=== PATIENT | female | born 1995 | race Two or more races ===

== ENCOUNTER 2020-03-02 14:11 | Emergency (ER) | payer OTHER ==
[2020-03-02 14:47] LABS: BASOPHILS % (AUTO) 0.4 %; EOSINOPHILS # (AUTO) 0.5 10^3/uL (0.0-0.7); EOSINOPHILS % (AUTO) 4.8 %; HGB - HEMOGLOBIN 14.4 g/dL (12.0-16.0); LYMPHOCYTES # (AUTO) 2.2 10^3/uL (1.5-3.5); LYMPHOCYTES % (AUTO) 20.3 %; MEAN CORPUSCULAR HEMOGLOBIN 32.1 pg (27.0-31.0); MEAN CORPUSCULAR VOLUME 94.2 fL (81.0-99.0); MEAN PLATELET VOLUME 9.7 fL (7.9-10.8); MONOCYTES # (AUTO) 0.6 10^3/uL (0.0-1.0); MONOCYTES % (AUTO) 5.6 %; NEUTROPHILS # (AUTO) 7.5 10^3/uL (1.5-6.6); NEUTROPHILS % (AUTO) 68.4 %; PLT - PLATELET COUNT 351 10^3/uL (130-450); RED BLOOD COUNT 4.49 10^6/uL (4.20-5.40); RED CELL DISTRIBUTION WIDTH 13.1 % (12.0-15.0); WHITE BLOOD COUNT 10.9 x10^3/uL (4.8-10.8)
--- NOTE | 2020-03-02 14:53 | ED Physician Documentation ---
History of Present Illness - Stated complaint Stated Complaint: FEMALE - Chief complaint Chief Complaint: Abd Pain - History obtained from History obtained from: Patient - History of Present Illness Timing: Prior to arrival, How many hours ago (6) - Additonal information Additional information: 25-year-old female presents to the emergency department with chief complaint of first trimester vaginal bleeding. Reports that she woke up this a.m. noticed some light vaginal spotting. After she took her shower however she began having some abdominal cramping and passing clots.She denies any focal abdominal tenderness Last menstrual period January 20, 2020. Her first was delivered action secondary to low heart rate. [place] She has not yet had an ultrasound of this Review of Systems Constitutional: denies: Fever Cardiac: denies: Chest pain / pressure, Palpitations Respiratory: denies: Dyspnea GI: reports: Nausea. denies: Abdominal Pain, Abdominal Swelling, Vomiting : reports: LMP (01/20/2020), Vaginal bleeding. denies: Dysuria, Frequency, Hesitancy Musculoskeletal: denies: Neck pain, Back pain Neurologic: denies: Generalized weakness, Syncope, Seizure, Confused PD PAST MEDICAL HISTORY - Allergies Allergies/Adverse Reactions: Allergies Allergy/AdvReac Type Severity Reaction Status Date / Time No Known Drug Allergies Allergy Verified 03/02/20 14:25 PD ED PE NORMAL - General General: Alert and oriented X 3, No acute distress, Well developed/nourished - Neck Neck: Supple, no meningeal sign, No adenopathy - Cardiac Cardiac: RRR, No murmur - Respiratory Respiratory: No respiratory distress - Abdomen Abdomen: Normal bowel sounds, Soft, Non tender - Female Female : Other (Scant amount of blood in vaginal vault. Cervical Os is closed. No bleeding. No adnexal or CMT) - Back Back: No CVA TTP - Extremities Extremities: No deformity - Neuro Neuro: Alert and oriented X 3, contract administration coordinator 2-12 intact Eye Opening: Spontaneous Motor: Obeys Commands Verbal: Oriented GCS Score: 15 Results - Vitals Vitals: Vital Signs - 24 hr 03/02/20 03/02/20 14:25 16:43 Temperature 36.8 C 36.8 C Heart Rate 100 96 Respiratory 16 20 Rate Blood Pressure 129/65 127/75 O2 Saturation 98 96 Oxygen O2 Source Room air - Labs Labs: Laboratory Tests 03/02/20 03/02/20 03/02/20 14:40 14:40 14:42 WBC 10.9 H RBC 4.49 Hgb 14.4 Hct 42.3 MCV 94.2 MCH 32.1 H MCHC 34.0 RDW 13.1 Plt Count 351 MPV 9.7 Neut # (Auto) 7.5 H Lymph # (Auto) 2.2 Stewart # (Auto) 0.6 Eos # (Auto) 0.5 Baso # (Auto) 0.0 Absolute Nucleated RBC 0.00 Nucleated RBC % 0.0 Sodium Potassium Chloride Carbon Dioxide Anion Gap BUN Creatinine Estimated GFR (MDRD) Glucose Calcium Total Bilirubin AST ALT Alkaline Phosphatase Total Protein Albumin Globulin Albumin/Globulin Ratio Lipase HCG, Quant 14874.00 Urine Color YELLOW Urine Clarity CLEAR Urine pH 6.5 Ur Specific [place] 1.010 Urine Protein NEGATIVE Urine Glucose (UA) NEGATIVE Urine Ketones NEGATIVE Urine Occult Blood SMALL H Urine Nitrite NEGATIVE Urine Bilirubin NEGATIVE Urine Urobilinogen 0.2 (NORMAL) Ur Leukocyte Esterase NEGATIVE Urine RBC 6-10 H Urine WBC 0-3 Ur Epithelial Cells RARE Transitional Ur Squamous Epith Cells RARE Squamous Urine Bacteria None Seen Ur Microscopic Review INDICATED Urine Culture Comments NOT INDICATED Blood Type 03/02/20 03/02/20 14:42 14:42 WBC RBC Hgb Hct MCV MCH MCHC RDW Plt Count MPV Neut # (Auto) Lymph # (Auto) Stewart # (Auto) Eos # (Auto) Baso # (Auto) Absolute Nucleated RBC Nucleated RBC % Sodium 134 L Potassium 3.3 L Chloride 102 Carbon Dioxide 23 Anion Gap 9.0 BUN 9 Creatinine 0.6 Estimated GFR (MDRD) 124 Glucose 132 H Calcium 9.0 Total Bilirubin 0.2 AST 21 ALT 32 Alkaline Phosphatase 109 Total Protein 7.6 Albumin 4.1 Globulin 3.5 Albumin/Globulin Ratio 1.2 Lipase 34 HCG, Quant Urine Color Urine Clarity Urine pH Ur Specific [place] Urine Protein Urine Glucose (UA) Urine Ketones Urine Occult Blood Urine Nitrite Urine Bilirubin Urine Urobilinogen Ur Leukocyte Esterase Urine RBC Urine WBC Ur Epithelial Cells Ur Squamous Epith Cells Urine Bacteria Ur Microscopic Review Urine Culture Comments Blood Type O POSITIVE - Rads (name of study) Pelvic US Radiology: Final report received (By core urinate uterus. The implantation is within the lower portion of the right cornua. There is a small subchorionic hemorrhage within the left lower cornual region and an early first trimester variable intrauterine gestation is seen 6 weeks 1 day.) PD MEDICAL DECISION MAKING - ED course Complexity details: reviewed results, considered differential, d/w patient ED course: 25-year-old female presents to the emergency department with vaginal bleeding within the first trimester . This is her second . 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 - Patient is Rh+. An ultrasound shows a positive IUP. However she does have a bicornate uterus. There is a subchorionic hemorrhage within the lower coronary region, likely the cause of the bleeding. - No signs of urinary tract infection - Physical exam and pelvic ultrasound not consistent with ectopic - Has a very healthy hCG today. imaging and lab findsings findings were discussed with the patient. [place] for repeat hCG and monitoring. Return precautions were discussed for concerns of severe bleeding, fevers or syncope. Departure - Departure Disposition: 01 Home, Self Care Clinical Impression: Threatened miscarriage in early , Bicornate uterus Subchorionic hemorrhage in first trimester Qualifiers: Fetus number: single or unspecified fetus Qualified Code(s): O41.8X10 - Other specified disorders of amniotic fluid and membranes, first trimester, not applicable or unspecified; O46.8X1 - Other antepartum hemorrhage, first trimester Condition: Stable Instructions: ED Miscarriage Poss Comments: Nilsa the ultrasound today shows that you have an approximately 6-week 1 day old within your uterus. You do have a small subchorionic hemorrhage within the left upper region of your bicorunate uterus. Your hCG level today was 12,000. You should see your base physician within 48 hours. Your hormone level should be repeated. If you develop suddenly severe lower pelvic pain have uncontrolled vaginal bleeding feel faint or weak return to the emergency department
[2020-03-02 14:58] LABS: BILIRUBIN,URINE NEGATIVE (NEGATIVE); GLUCOSE, URINE (UA) NEGATIVE (NEGATIVE); KETONES,URINE (UA) NEGATIVE (NEGATIVE); LEUKOCYTE ESTERASE, URINE NEGATIVE (NEGATIVE); NITRITE,URINE NEGATIVE (NEGATIVE); OCCULT BLOOD,URINE SMALL (NEGATIVE); PH,URINE 6.5 PH (5.0-7.5); PROTEIN,URINE NEGATIVE (NEGATIVE); UROBILINOGEN,URINE 0.2 (NORMAL) E.U./dL (NORMAL)
[2020-03-02 15:02] LABS: ALBUMIN 4.1 g/dL (3.2-5.5); ALBUMIN/GLOBULIN RATIO 1.2 (1.0-2.2); BILIRUBIN,TOTAL 0.2 mg/dL (0.2-1.0); CREATININE 0.6 mg/dL (0.4-1.0); TOTAL PROTEIN 7.6 g/dL (6.7-8.2)
[2020-03-02 15:04] LABS: CLARITY,URINE CLEAR (CLEAR)
[2020-03-02 15:10] LABS: EPITHELIAL CELLS,UR RARE Transitional /HPF (<= Few); SQUAMOUS EPITHELIAL CELL,UR RARE Squamous (<= Few)
[2020-03-02 15:11] LABS: BACTERIA,URINE None Seen /HPF (None Seen)
--- NOTE | 2020-03-02 16:59 | Ultrasound Report ---
PROCEDURE: OB First Trimester INDICATIONS: first trimester bleeding OUTSIDE/PRIOR DATING DATA: Last menstrual period (LMP): 01/20/2020. LMP-based estimated date of delivery (NATIVIDAD): 10/26/2020. First dating scan (date and location): 03/02/2020, this study. Estimated date of delivery ([place]) from first dating scan: 10/25/2020. TECHNIQUE: Real-time scanning was performed of the fetus and maternal pelvic organs, with image documentation. COMPARISON: None FINDINGS: There is a single living intrauterine gestation with heart rate 86 bpm, with a crown-rump length of a gestation within the endometrial canal measuring 4 mm which correlates with an early firs t trimester gestation measuring 6 weeks 1 day of gestational age, +/- 5 days. Embryo: Viable gestation as noted. The low heart rate is expected in the very early phases of embryo wolfgang development. Measurement variability in dating: +/- 4 weeks by LMP, +/- 7 days by mean sac diameter (use before 6 weeks gestation if crown-rump length not able to be measured), +/- 5 days by crown-rump length (6-12 weeks gestation). Maternal organs: Ovaries normal considering gestational status, corpus luteum cyst on the right. . T here is bicornuate morphology of the uterus. The is located on the right cornua rather than superiorly. Note is made of several small foci of subchorionic hemorrhage, best seen at the left cor nual region.. Limited images through the kidneys demonstrate no hydronephrosis. IMPRESSION: Bicornuate uterus, the implantation is within the lower portion of the right cornua. There is a small subchorionic hemorrhage within the left lower cornu region, and a early first trimester viable intra uterine gestation is currently seen having a current estimated gestational age of 6 weeks 1 day, +/- 5 days. The delivery date is projected to be centered on 10/25/2020. Reviewed by: Ronan Strauss MD on 03/02/2020 4:57 PM PDT Approved by: Ronan Strauss MD on 03/02/2020 4:57 PM PDT Station ID: [id number]
--- NOTE | 2020-03-02 17:18 | Ultrasound Report ---
PROCEDURE: OB Transvaginal INDICATIONS: first trimester bleeding TECHNIQUE: Transvaginal scanning was performed COMPARISON: Transabdominal scanning also performed same day emergently. FINDINGS: Please refer to the report from the transabdominal scan for this dictation. Both transabdominal and t ransvaginal scanning were performed during that study. IMPRESSION: Please refer to the report same day previously generated for "transabdominal" scanning which also inc luded transvaginal scanning. Reviewed by: Ronan Strauss MD on 03/02/2020 5:17 PM PDT Approved by: Ronan Strauss MD on 03/02/2020 5:17 PM PDT Station ID: [id number]
[2020-03-02 18:02] VITALS: BP 117/77
== END 2020-03-02 18:06 | disposition home or self-care (01) ==
LOC: ED 14:11
DX: O20.0 Threatened abortion (principal); O34.01 Maternal care for unspecified congenital malformation of uterus, first trimester; Q51.3 Bicornate uterus
CPT/HCPCS: 36415; 76801; 76817; 80053; 81001; 81003; 83690; 84702; 85025; 86900; 86901; 87086; 99284

== ENCOUNTER 2020-05-11 10:39 | Outpatient (CLI) | payer OTHER ==
--- NOTE | 2020-05-11 13:20 | Ultrasound Report ---
PROCEDURE: OB Transvaginal INDICATIONS: ABN UTERINE VAG BLEEDING - 16WKS OUTSIDE/PRIOR DATING DATA: Last menstrual period (LMP): 01/20/2020. LMP-based estimated date of delivery ([place]): 10/26/2020. First dating scan (date and location): 03/02/2020 at [facility]. Estimated date of delivery ([facility]) from first dating scan: 10/25/2020. TECHNIQUE: Real-time scanning was performed of the fetus, with image documentation and biometric measurements. Endovaginal scanning: Performed. Transvaginal images are associated with transabdominal OB ultrasoun d study performed at the same time (accession number [id number]). COMPARISON: Ultrasound dated 11/17/2019 FINDINGS: General: A single living intrauterine gestation is present. Presentation: Variable Placenta: Placental position is posterior. Amniotic fluid index: 9.5 cm, 15th percentile for gestational age. heart rate: 143 beats per minute. Maternal cervical canal: 4.4 cm long; normal length is 2.5 cm or more. biometrics: Biparietal diameter: 3.5 cm, 16 weeks 5 days Head circumference: 12.6 cm, 16 weeks 2 days Abdominal circumference: 10.4 cm, 16 weeks 3 days Femur length: 2.0 cm, 16 weeks 0 days Estimated gestational age from initial scan: 16 weeks 1 day. Composite gestational age from present scan: 16 weeks 3 days Estimated weight and percentile: 148 g, 45th percentile Measurement variability for biometric dating: +/- 10 days from 12-20 weeks gestation, +/- 2 weeks fro m 20-30 weeks gestation, +/- 3 weeks for 30 weeks gestation or later. Bicornuate uterus is present. The ovaries are not well visualized. The inferior border of the placent a is approximately 1.3 cm from the internal cervical os on transvaginal images. Some vascularity is s een in the region of the internal cervical os without definite vasa previa. However, continued attent ion on follow-up exams is recommended. IMPRESSION: 1. Single live intrauterine with heart rate of 143 BPM. 2. The placenta is low-lying, with the lower margin approximately 1.3 cm from the internal cervical os. Vessels are seen in the region of the internal cervical os without a definite vasa previa. Contin ued attention on follow-up exams is recommended. 3. Recommend second trimester anatomy screening ultrasound at 18-20 weeks. 4. Bicornuate uterus. Reviewed by: Luisito Bates MD on 05/11/2020 1:18 PM PDT Approved by: Luisito Bates MD on 05/11/2020 1:18 PM PDT Station ID: [id number]
--- NOTE | 2020-05-11 13:20 | Ultrasound Report ---
PROCEDURE: OB 14+ Weeks INDICATIONS: ABN UTERINE VAG BLEEDING OUTSIDE/PRIOR DATING DATA: Last menstrual period (LMP): 01/20/2020. LMP-based estimated date of delivery (NATIVIDAD): 10/26/2020. First dating scan (date and location): 03/02/2020 at [facility]. Estimated date of delivery ([place]) from first dating scan: 10/25/2020. TECHNIQUE: Real-time scanning was performed of the fetus, with image documentation and biometric measurements. Endovaginal scanning: Performed COMPARISON: Ultrasound dated 11/17/2019 FINDINGS: General: A single living intrauterine gestation is present. Presentation: Variable Placenta: Placental position is posterior. Amniotic fluid index: 9.5 cm, 15th percentile for gestational age. heart rate: 143 beats per minute. Maternal cervical canal: 4.4 cm long; normal length is 2.5 cm or more. biometrics: Biparietal diameter: 3.5 cm, 16 weeks 5 days Head circumference: 12.6 cm, 16 weeks 2 days Abdominal circumference: 10.4 cm, 16 weeks 3 days Femur length: 2.0 cm, 16 weeks 0 days Estimated gestational age from initial scan: 16 weeks 1 day. Composite gestational age from present scan: 16 weeks 3 days Estimated weight and percentile: 148 g, 45th percentile Measurement variability for biometric dating: +/- 10 days from 12-20 weeks gestation, +/- 2 weeks fro m 20-30 weeks gestation, +/- 3 weeks for 30 weeks gestation or later. Bicornuate uterus is present. The ovaries are not well visualized. The inferior border of the placent a is approximately 1.3 cm from the internal cervical os on transvaginal images. Some vascularity is s een in the region of the internal cervical os without definite vasa previa. However, continued attent ion on follow-up exams is recommended. IMPRESSION: 1. Single live intrauterine with heart rate of 143 BPM. 2. The placenta is low-lying, with the lower margin approximately 1.3 cm from the internal cervical os. Vessels are seen in the region of the internal cervical os without a definite vasa previa. Contin ued attention on follow-up exams is recommended. 3. Recommend second trimester anatomy screening ultrasound at 18-20 weeks. 4. Bicornuate uterus. Reviewed by: Luisito Bates MD on 05/11/2020 1:18 PM PDT Approved by: Luisito Bates MD on 05/11/2020 1:18 PM PDT Station ID: [id number]
== END 2020-05-11 10:40 | disposition home or self-care (01) ==
LOC: DI 10:39
PROVIDERS: ATTEND Obstetrics & Gynecology
DX: O44.42 Low lying placenta NOS or without hemorrhage, second trimester (principal); O34.02 Maternal care for unspecified congenital malformation of uterus, second trimester; Q51.3 Bicornate uterus; Z3A.16 16 weeks gestation of pregnancy
CPT/HCPCS: 76805; 76817

== ENCOUNTER 2020-05-26 08:00 | Outpatient (CLI) | payer OTHER ==
[2020-05-26 18:46] LABS: THYROID STIMULATING HORMONE 0.79 uIU/mL (0.34-5.60)
[2020-05-26 18:48] LABS: FREE T4 (FREE THYROXINE) 0.63 ng/dL (0.58-1.64)
[2020-05-27 09:51] LABS: HEPATITIS B SURFACE ANTIGEN NON-REACTIVE (NON-REACTIVE)
[2020-05-27 10:23] LABS: HEPATITIS C ANTIBODY NON-REACTIVE (NON-REACTIVE)
== END 2020-05-26 23:59 | disposition home or self-care (01) ==
LOC: LAB.WCP 08:00
PROVIDERS: ATTEND Obstetrics & Gynecology
DX: Z34.90 Encounter for supervision of normal pregnancy, unspecified, unspecified trimester (principal); Z83.49 Family history of other endocrine, nutritional and metabolic diseases
CPT/HCPCS: 36415; 81511; 81599; 84439; 84443; 86803; 87340

== ENCOUNTER 2020-06-10 07:19 | Outpatient (CLI) | payer OTHER ==
--- NOTE | 2020-06-10 11:51 | Ultrasound Report ---
PROCEDURE: OB Detailed Eval INDICATIONS: SUPERVISION OF NORMAL OUTSIDE/PRIOR DATING DATA: Last menstrual period (LMP): 01/20/2020. LMP-based estimated date of delivery (NATIVIDAD): 10/26/2020. First dating scan (date and location): 03/02/2020. Estimated date of delivery (NAT[place]) from first dating scan: 10/25/2020. TECHNIQUE: Real-time scanning was performed of the fetus, with image documentation and biometric measurements. Endovaginal scanning: To assess placental position COMPARISON: 03/02/2020, 05/11/2020 FINDINGS: General: A single living intrauterine gestation is present. Presentation: Breech Placenta: Placental position is posterior. The edge of the placenta is 3.7 cm from the internal cerv ical os measured on transvaginal imaging. There are no vessels covering the internal cervical os. Vas cular flow is documented along the posterior aspect of the cervix the Doppler imaging was not provide d to determine if this was maternal or in origin. The placental umbilical cord insertion is nor mal. Amniotic fluid index: 14.8 cm, normal for gestational age. heart rate: 143 beats per minute. Maternal cervical canal: 4.9 cm long; normal length is 2.5 cm or more. The cervix is closed on hidalgo svaginal imaging. biometrics: Biparietal diameter: 4.7 cm, 20 weeks, 0 days Head circumference: 17.9 cm, 20 weeks, 2 days Abdominal circumference: 15.6 cm, 20 weeks, 5 days Femur length: 3.2 cm, 20 weeks, 0 days Estimated gestational age from initial scan: 20 weeks, 3 days. Composite gestational age from present scan: 20 weeks, 2 days Estimated weight and percentile: 351 g, 43rd percentile Measurement variability in biometric dating: +/- 10 days from 12-20 weeks gestation, +/- 2 weeks from 20-30 weeks gestation, +/- 3 weeks at 30 weeks gestation or later. Anatomic survey: Neuro: Ventricles are normal at less than 10 mm. Cisterna magna is normal at 3-11 mm. Cerebellum i s normal in size and morphology. Nuchal skin fold: Normal at less than 6 mm between 14 and 20 weeks gestational age. Face: Nose and lips, facial profile are normal. Spine: No evidence for spina bifida. Heart: 4-chambered heart is present, with normal ventricular outflow tracts. Diaphragm: Diaphragm is intact. Stomach: Left-sided stomach is present. Kidneys: No hydronephrosis. Normal is less than 5 mm in 2nd trimester, less than 7 mm in 3rd trimester. Cord: 3 vessel cord has orthotopic insertion. Bladder: Normal in size. Extremities: All 4 extremities are visualized. IMPRESSION: 1. Single live intrauterine with appropriate growth since the prior study. 2. Normal anatomy. 3. Posterior placenta without placenta previa. 4. Vasculature of indeterminant origin along the posterior aspect of the cervix. Vasa previa is not e ntirely excluded and follow-up with transvaginal imaging is recommended with documentation of vascula r flow with pulse Doppler. Reviewed by: Annie Marc MD on 06/10/2020 11:49 AM PST Approved by: Annie Marc MD on 06/10/2020 11:49 AM PST Station ID: [id number]
== END 2020-06-10 07:20 | disposition home or self-care (01) ==
LOC: DI 07:19
PROVIDERS: ATTEND Obstetrics & Gynecology
DX: Z34.90 Encounter for supervision of normal pregnancy, unspecified, unspecified trimester (principal)
CPT/HCPCS: 76811; 76817

== ENCOUNTER 2020-08-10 08:00 | Outpatient (CLI) | payer OTHER ==
[2020-08-10 18:53] LABS: HGB - HEMOGLOBIN 11.5 g/dL (12.0-16.0); MEAN CORPUSCULAR HEMOGLOBIN 30.2 pg (27.0-31.0); MEAN CORPUSCULAR HGB CONC 31.9 g/dL (32.0-36.0); MEAN CORPUSCULAR VOLUME 94.5 fL (81.0-99.0); MEAN PLATELET VOLUME 10.8 fL (7.9-10.8); RED BLOOD COUNT 3.81 10^6/uL (4.20-5.40); RED CELL DISTRIBUTION WIDTH 13.9 % (12.0-15.0); WHITE BLOOD COUNT 11.6 x10^3/uL (4.8-10.8)
== END 2020-08-10 23:59 | disposition home or self-care (01) ==
LOC: LAB.WCP 08:00
PROVIDERS: ATTEND Obstetrics & Gynecology
DX: Z34.90 Encounter for supervision of normal pregnancy, unspecified, unspecified trimester (principal)
CPT/HCPCS: 36415; 82950; 85027

== ENCOUNTER 2020-08-17 10:42 | Outpatient (CLI) | payer OTHER | END 2020-08-17 10:43 | disposition home or self-care (01) | LOC: LAB 10:42 | PROVIDERS: ATTEND Obstetrics & Gynecology | DX: O99.810 Abnormal glucose complicating pregnancy (principal) | CPT/HCPCS: 36415; 82951; 82952 ==

== ENCOUNTER 2020-09-14 08:00 | Outpatient (CLI) | payer OTHER ==
[2020-09-14 20:50] LABS: CANDIDA GROUP DNA POSITIVE (NEGATIVE); CANDIDA KRUSEI DNA NEGATIVE (NEGATIVE); TRICHOMONAS VAGINALIS DNA NEGATIVE (NEGATIVE)
[2020-09-14 22:43] LABS: TRICHOMONAS VAGINALIS DNA NEGATIVE (NEGATIVE)
== END 2020-09-14 23:59 | disposition home or self-care (01) ==
LOC: LAB.R 08:00
PROVIDERS: ATTEND Obstetrics & Gynecology
DX: N89.8 Other specified noninflammatory disorders of vagina (principal); Z11.3 Encounter for screening for infections with a predominantly sexual mode of transmission
CPT/HCPCS: 87491; 87591; 87661; 87801

== ENCOUNTER 2020-09-24 15:32 | Observation (INO) | payer OTHER ==
[2020-09-24] MEDS ORDERED: TERBUTALINE 1 MG/ML VIAL SUBQ ONE ×2 (16:11→19:02)
[2020-09-24] MEDS ORDERED: LACTATED RINGERS 1,000 ML IV ONE ×2 (16:14→19:26)
[2020-09-24 16:42] LABS: MUDS CUTOFF CONCENTRATIONS CUTOFF CONC BELOW:
[2020-09-24 16:46] LABS: BILIRUBIN,URINE NEGATIVE (NEGATIVE); GLUCOSE, URINE (UA) NEGATIVE (NEGATIVE); KETONES,URINE (UA) 15 mg/dL (NEGATIVE); LEUKOCYTE ESTERASE, URINE NEGATIVE (NEGATIVE); NITRITE,URINE NEGATIVE (NEGATIVE); OCCULT BLOOD,URINE NEGATIVE (NEGATIVE); PH,URINE 6.5 PH (5.0-7.5); PROTEIN,URINE NEGATIVE (NEGATIVE); UROBILINOGEN,URINE 0.2 (NORMAL) E.U./dL (NORMAL)
[2020-09-24 16:47] LABS: CLARITY,URINE CLEAR (CLEAR)
[2020-09-24 16:57] LABS: AMPHETAMINE SCREEN,URINE NEGATIVE (NEGATIVE); BARBITURATE SCREEN,UR NEGATIVE (NEGATIVE); BENZODIAZEPINES SCREEN, URINE NEGATIVE (NEGATIVE); COCAINE SCREEN URINE NEGATIVE (NEGATIVE); METHADONE SCREEN, URINE NEGATIVE (NEGATIVE); METHAMPHETAMINES SCREEN, URINE NEGATIVE (NEGATIVE); OPIATE SCREEN, URINE NEGATIVE (NEGATIVE); OXYCODONE SCREEN, URINE NEGATIVE (NEGATIVE); PROPOXYPHENE SCREEN, URINE NEGATIVE (NEGATIVE); THC CANNABINOID SCREEN, URINE NEGATIVE (NEGATIVE); TRICYCLIC ANTIDEPRESSANT,URINE NEGATIVE (NEGATIVE)
[2020-09-24 17:21] LABS: RBC,URINE 0-5 /HPF (0-5); WBC,URINE 0-3 /HPF (0-5)
[2020-09-24 17:22] LABS: BACTERIA,URINE Rare /HPF (None Seen); MUCUS,URINE Few Strands; SQUAMOUS EPITHELIAL CELL,UR RARE Squamous (<= Few)
[2020-09-24 17:41] LABS: BASOPHILS % (AUTO) 0.3 %; EOSINOPHILS # (AUTO) 0.3 10^3/uL (0.0-0.7); EOSINOPHILS % (AUTO) 2.3 %; HGB - HEMOGLOBIN 11.9 g/dL (12.0-16.0); LYMPHOCYTES # (AUTO) 2.1 10^3/uL (1.5-3.5); LYMPHOCYTES % (AUTO) 16.6 %; MEAN CORPUSCULAR HEMOGLOBIN 29.2 pg (27.0-31.0); MEAN CORPUSCULAR HGB CONC 32.2 g/dL (32.0-36.0); MEAN CORPUSCULAR VOLUME 90.7 fL (81.0-99.0); MEAN PLATELET VOLUME 11.1 fL (7.9-10.8); MONOCYTES # (AUTO) 1.2 10^3/uL (0.0-1.0); NEUTROPHILS % (AUTO) 70.5 %; PLT - PLATELET COUNT 307 10^3/uL (130-450); RED BLOOD COUNT 4.08 10^6/uL (4.20-5.40); RED CELL DISTRIBUTION WIDTH 15.2 % (12.0-15.0); WHITE BLOOD COUNT 12.7 x10^3/uL (4.8-10.8)
[2020-09-24 17:54] LABS: ALBUMIN/GLOBULIN RATIO 0.7 (1.0-2.2); BILIRUBIN,TOTAL 0.4 mg/dL (0.2-1.0); CALCIUM 9.3 mg/dL (8.5-10.3); CREATININE 0.4 mg/dL (0.4-1.0); POTASSIUM 3.7 mmol/L (3.5-5.0); TOTAL PROTEIN 7.2 g/dL (6.7-8.2)
[2020-09-24] MEDS: NIFEdipine 10 MG CAPSULE PO PRN ×3 (19:25→20:27)
--- NOTE | 2020-09-24 19:27 | HISTORY & PHYSICAL EXAMINATION ---
Admit History - Visit Reason Visit Reason: Contractions (Patient states that 8 o'clock this morning she developed contractions is becoming progressively worse with time. She presented at 1500 today with contractions. She denies any spontaneous rupture membranes or bleeding. She notes good activity.) - : 2 Parity: 1 Premature: 0 Ectopic: 0 : 0 Care: positive: [facility] Risk/History: positive: Previous Complications This : positive: None Smoking Status: Never smoker - Mother's Labs Mother's Blood Type: positive: O Mother's RH: positive: Positive Rubella Status: positive: Immune - Other Maternal History Other Maternal History: 11 weeks EGA. She had regular visits.Patient started her OB care atHer last exam was on 14 September time her cervix wasHer care was unremarkable. Closed 0% effaced and very posterior presenting part was high. Physical examination HEENT:Pupils equal round extraocular muscles intactThyroid not enlarged Heart: Regular rate and rhythm without murmurs . Lungs: Clear without rales or wheezes Abdomen: Gravid nontender. Patient is having contractions about every 6 to 7 minutes.Pelvic examination Presenting part is high and not applied cervix is fingertip but long it is mid to posterior cervix is soft. DTRs are negative. Impression: 25 yo 35+3 weeks Prior C/S Prodromal labor. Plan: try Procardia 10 mg Q 15 min times 4. Meds/Allgy - Allergies Allergies/Adverse Reactions: Allergies Allergy/AdvReac Type Severity Reaction Status Date / Time No Known Drug Allergies Allergy Verified 03/02/20 14:25 Physical - Abdominal Exam Vital Signs: Temp Pulse Resp BP Pulse Ox 36.7 C 115 H 20 127/77 97 09/24/20 15:37 09/24/20 15:37 09/24/20 15:37 09/24/20 15:37 09/24/20 15:37
[2020-09-24] MEDS ORDERED: NIFEdipine 10 MG CAPSULE PO PRN (19:38)
[2020-09-24] MEDS ORDERED: NIFEdipine ER 30 MG TABLET PO ONE ×2 (20:52→22:00)
[2020-09-25] MEDS ORDERED: ACETAMINOPHEN 500 MG TABLET PO PRN (01:19)
[2020-09-25 08:28] VITALS: BP 104/57
--- NOTE | 2020-09-25 08:49 | PROVIDER PROGRESS NOTE ---
- HPI Chief Complaint: Labor Current : Current EDU 10/26/20 Gestation 35 Weeks and 3 Days 2 Para 1 Vital Signs Temperature 36.7 C 09/24/20 15:37 Heart Rate 118 H 09/24/20 15:37 Respiratory Rate 20 09/24/20 15:37 Blood Pressure 127/77 09/24/20 15:37 O2 Saturation 97 09/24/20 15:37 Temperature 36.7 C 09/25/20 08:25 Heart Rate 105 H 09/25/20 08:25 Respiratory Rate 20 09/25/20 08:25 Blood Pressure 104/57 L 09/25/20 08:25 O2 Saturation 98 09/25/20 08:25 - Procedures OB Procedure Performed: NST Diagnosis/Indication for NST: Other ( labor) NST Procedure: reactive Procedure Details: Pt 's contractions have markedly diminished. She is not now feeling them. Pt is taking Procardia XR 60 mg. last dose was 22:00. Send home with precautions. Discharge medications: Prcardia XR 30 mg q12 PRN #7 Keep Sunday Appt Report contractions
== END 2020-09-25 08:45 | disposition home or self-care (01) ==
LOC: WFO 15:32 → FBP 15:33 → WFO 15:33 → FBP 21:24 → WFO 09-25 01:49
PROVIDERS: ADMIT Obstetrics & Gynecology; ATTEND Obstetrics & Gynecology
DX: O60.03 Preterm labor without delivery, third trimester (principal); Z3A.35 35 weeks gestation of pregnancy
CPT/HCPCS: 59025; 80053; 80306; 81001; 85025; 86850; 86900; 86901; 87797; 99214; A9270; G0378; J7120; 82731; 87086; 87491; 87591; 87661

== ENCOUNTER 2020-10-02 18:50 | Inpatient (IN) | payer OTHER ==
[2020-10-02] MEDS ORDERED: NIFEdipine 10 MG CAPSULE PO PRN (19:25)
[2020-10-02] MEDS ORDERED: METHYLERGONOVINE 0.2 MG/ML VIAL IM PRN (19:33)
[2020-10-02] MEDS ORDERED: OXYTOCIN/SODIUM CHLORIDE 500 ML IV PRN (19:33)
[2020-10-02] MEDS ORDERED: miSOPROStoL 200 MCG TABLET BC PRN (19:33)
[2020-10-02] MEDS ORDERED: TRANEXAMIC ACID IN NACL 1,000 MG/100 ML BAG IV PRN (19:33)
[2020-10-02] MEDS ORDERED: CARBOPROST TROMETHAMINE 250 MCG/ML AMP IM PRN (19:33)
[2020-10-02] MEDS ORDERED: LIDOCAINE-MPF 1% 30 ML VIAL ID PRN (19:33)
[2020-10-02] MEDS ORDERED: OXYTOCIN 10 UNIT/ML VIAL IM PRN (19:33)
[2020-10-02] MEDS ORDERED: LACTATED RINGERS 1,000 ML IV ONE ×2 (19:45→22:19)
[2020-10-02] MEDS ORDERED: SODIUM CHLORIDE FLUSH 0.9% 10 ML SYRINGE ONE (19:46)
[2020-10-02] MEDS ORDERED: ceFAZolin 1 GM in SODIUM CHLORIDE 0.9% MINIBAG 100 ML IV SCH (20:00)
[2020-10-02] MEDS ORDERED: LACTATED RINGERS 1,000 ML IV SCH (20:00)
[2020-10-02] MEDS ORDERED: OXYTOCIN 10 UNIT/ML VIAL ONE (20:07)
[2020-10-02] MEDS ORDERED: MORPHINE PF 5 MG/10 ML VIAL ONE (20:07)
--- NOTE | 2020-10-02 20:07 | HISTORY & PHYSICAL EXAMINATION ---
History of Present Illness - History of Present Illness HPI Comment/Other: CC: contractions HPI: Contractions started last night intermittently and mild. Increased this am and have progressed throughout the day. Now are more frequent than q5min and are 6/10 in intensity. No VB, no LOF. Good FM. Feels like labor. 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 Bilateral shoulder surgery. No preg complications FH: no anesthesia complications Allergies: NKDA Meds: PNV, tylenol PRN, tums PRN SH: no t/e/d. Student getting mexican BA OB: , prior at 38w Dating: LMP c/w 7w US O+, RI, QS normal Vax s/p Tdap and flu US: normal anatomy, no previa with MFM (initial US was suggestive of that), 72%ile, normal fluid, posterior placenta 1h = 190. 3h 96/168/134/120 GBS neg Pap normal O: HR 116, otherwise AVSS Grimacing with contractions Abd soft, nt/nd 140, mod LTV, accel present, decel absent UC q 2.5 - 6min SVE on 09/28/20 1/long/high SVE now 2/long/high A/P: 25yo at 36w4d by LMP c/w 7w US with labor and prior c- section. Declines option of TOLAC. discussed how it is done and mt very. Risk reviewed including bleeding, infection, trauma to local organs, anesthesia problems, problems with future pregnancies due to scar on uterus. All questions answered and consent signed. Will externalize uterus and check cavity carefully with possible bicornuate vs arcuate uterus. Meds/Allgy - Allergies Allergies/Adverse Reactions: Allergies Allergy/AdvReac Type Severity Reaction Status Date / Time No Known Drug Allergies Allergy Verified 03/02/20 14:25 Exam - Vital Signs Vital Signs: Vital Signs x48h Temp Pulse Resp BP Pulse Ox 10/02/20 18:59 99.5 F 118 H 20 127/77 97
--- NOTE | 2020-10-02 20:11 | ANESTHESIA ---
Pre-Anesthesia VS, & Labs - Diagnosis repeat c/s - Procedure repeat c/s Vital Signs: Temp Pulse Resp BP Pulse Ox 37.5 C 118 H 20 127/77 97 10/02/20 18:59 10/02/20 18:59 10/02/20 18:59 10/02/20 18:59 10/02/20 18:59 Height: 5 ft 8 in - NPO >8 hours - Is Patient ?: Yes Home Medications and Allergies Active Medications Carboprost Tromethamine (Carboprost Tromethamine 250 Mcg/Ml Amp) 250 mcg IM Q15M PRN PRN Reason: Step 4: Hemorrhage protocol Stop: 10/07/20 19:33 Lactated Ringer's (Lr) 1,000 mls @ 150 mls/hr IV .Q6H40M KIM Oxytocin/Sodium Chloride (Pitocin/Sodium Chloride) 500 mls @ 999 mls/hr IV PRN PRN; Protocol PRN Reason: POST- HEMORR PREVENTION Stop: 10/07/20 19:33 Tranexamic Acid (Tranexamic 1,000 Mg/100ml-Nacl) 1,000 mg in 100 mls @ 600 mls/hr IV .ONCE PRN PRN Reason: EBL >1200mL and within 3hr Stop: 10/07/20 19:33 Cefazolin Sodium 1 gm/ Sodium (Chloride) 100 mls @ 200 mls/hr IV Q8H KIM Lidocaine HCl (Lidocaine-Mpf 1% 30 Ml Vial) 30 ml ID .ONCE PRN PRN Reason: PERINEAL REPAIR Stop: 10/07/20 19:33 Methylergonovine Maleate (Methylergonovine 0.2 Mg/Ml Vial) 0.2 mg IM .ONCE PRN PRN Reason: Step 2: Hemorrhage protocol Stop: 10/07/20 19:33 Misoprostol (Misoprostol 200 Mcg Tablet) 800 mcg BC .ONCE PRN PRN Reason: Step 3: Hemorrhage protocol Stop: 10/07/20 19:33 Nifedipine (Nifedipine 10 Mg Capsule) 10 mg PO ONCE PRN PRN Reason: PER PHYSICIAN ORDER Stop: 10/03/20 19:24 Oxytocin (Oxytocin 10 Unit/Ml Vial) 10 unit IM .ONCE PRN PRN Reason: Step one: If no IV access Stop: 10/07/20 19:33 Sodium Chloride (Sodium Chloride Flush 0.9% 10 Ml Syringe) 10 ml IVP PRN PRN PRN Reason: NEEDED PER PROVIDER ORDERS Sodium Chloride (Sodium Chloride Flush 0.9% 10 Ml Syringe) 10 ml IVP 0100,0900,1700 [facility] Allergies/Adverse Reactions: Allergies Allergy/AdvReac Type Severity Reaction Status Date / Time No Known Drug Allergies Allergy Verified 03/02/20 14:25 Anes History & Medical History - Anesthetic History Anesthesia Complications: reports: No previous complications Family history of Anesthesia Complications: Denies - Medical History Cardiovascular: reports: None Pulmonary: reports: Asthma Smoking Status: Never smoker History of Cancer?: No - Surgical History Gynecologic: reports: section Exam General: Alert Dental: WNL Mouth Opening: Greater than 4 Fingerbreadths Neck Mobility: Normal Mallampati classification: II Thyromental Distance: greater than 6 cm Respiratory: Lungs clear Cardiovascular: Regular rate Plan Anesthesia Type: Spinal Consent for Procedure(s) Verified and Reviewed: Yes Code Status: Attempt Resuscitation ASA classification: 2-Mild systemic disease Is this case an emergency?: Yes
[2020-10-02 20:15] LABS: BASOPHILS % (AUTO) 0.3 %; EOSINOPHILS # (AUTO) 0.2 10^3/uL (0.0-0.7); EOSINOPHILS % (AUTO) 1.4 %; HCT - HEMATOCRIT 38.1 % (37.0-47.0); HGB - HEMOGLOBIN 12.2 g/dL (12.0-16.0); LYMPHOCYTES # (AUTO) 2.3 10^3/uL (1.5-3.5); MEAN CORPUSCULAR HEMOGLOBIN 28.7 pg (27.0-31.0); MEAN CORPUSCULAR VOLUME 89.6 fL (81.0-99.0); MEAN PLATELET VOLUME 11.1 fL (7.9-10.8); MONOCYTES # (AUTO) 1.1 10^3/uL (0.0-1.0); MONOCYTES % (AUTO) 8.4 %; NEUTROPHILS % (AUTO) 70.6 %; NRBC ABSOLUTE COUNT (AUTO) 0.02 x10^3/uL; NUCLEATED RED BLOOD CELLS AUTO 0.2 /100WBC; PLT - PLATELET COUNT 327 10^3/uL (130-450); RED BLOOD COUNT 4.25 10^6/uL (4.20-5.40); RED CELL DISTRIBUTION WIDTH 15.5 % (12.0-15.0); WHITE BLOOD COUNT 12.8 x10^3/uL (4.8-10.8)
[2020-10-02] MEDS: LACTATED RINGERS 1,000 ML IV SCH (20:30)
[2020-10-02] MEDS ORDERED: ceFAZolin 1 GM VIAL ONE (21:20)
[2020-10-02] MEDS ORDERED: ROPIVACAINE 0.5% PF 20 ML AMPULE ONE (21:24)
[2020-10-02] MEDS ORDERED: DEXAMETHASONE 4 MG/ML VIAL ONE (21:25)
[2020-10-02] MEDS ORDERED: ATROPINE ABBOJECT 1 MG/10 ML SYRINGE IVP PRN (21:37)
[2020-10-02] MEDS ORDERED: diphenhydrAMINE INJ 50 MG/ML VIAL IVP PRN (21:37)
[2020-10-02] MEDS ORDERED: NALBUPHINE 10 MG/ML AMP IVP PRN (21:37)
[2020-10-02] MEDS ORDERED: ePHEDrine 50 MG/ML VIAL IVP PRN (21:37)
[2020-10-02] MEDS ORDERED: NALOXONE 0.4 MG/ML VIAL IVP PRN ×2 (21:37)
[2020-10-02] MEDS ORDERED: METOCLOPRAMIDE 10 MG/2 ML VIAL IVP PRN ×2 (21:37)
[2020-10-02] MEDS ORDERED: ONDANSETRON 4 MG/2 ML VIAL IVP PRN ×2 (21:37)
[2020-10-02] MEDS ORDERED: fentaNYL 100 MCG/2 ML VIAL IVP PRN (21:37)
[2020-10-02] MEDS ORDERED: MORPHINE 2 MG/ML CARPUJECT IVP PRN (21:37)
[2020-10-02] MEDS ORDERED: HYDROmorphone 0.5 MG/0.5 ML SYRINGE IVP PRN (21:37)
[2020-10-02] MEDS ORDERED: SIMETHICONE CHEW 80 MG TABLET PO PRN (22:03)
[2020-10-02] MEDS ORDERED: HYDROCORTISONE 1% CREAM 28 GM TUBE PR PRN (22:03)
[2020-10-02] MEDS ORDERED: oxyCODONE 5 MG TABLET PO PRN (22:03)
[2020-10-02] MEDS ORDERED: WITCH HAZEL/GLYCERIN 1 PAD TOP PRN (22:03)
[2020-10-02] MEDS ORDERED: ONDANSETRON ODT 4 MG TABLET TL PRN (22:03)
--- NOTE | 2020-10-02 22:07 | OPERATIVE REPORT ---
Operative Report - General Admit Date: 10/02/20 - Other Other Information/Narrative: Preoperative diagnosis: labor at 36w4d, labor, prior Postoperative diagnosis: same Procedure: section, low transverse, repeat Surgeon: Lalo Critical Care Physician: Shamar MIX who was needed to provide adequate retraction, visualization, and expulsion Anesthesia: Spinal Estimated Blood Loss: 500 IV Fluids: 2000 Urine output: 100 Counts: correct sponge and instrument Complications: none apparent Disposition: stable to recovery room Prophylaxis: SCD to bilateral lower extremities, Ancef 2g IV Specimens: Cord blood for typing Findings: Clear amniotic fluid. Liveborn male, apgars 8/9. 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 The patient was brought to the operating room, where she underwent spinal anesthesia. A Mancera catheter was placed and SCDs were placed. She was prepped and draped in the usual sterile fashion. A scalpel was used to make a Pfannenstiel skin incision 3 cm superior to the pubic symphysis. This was carried down to the fascia, which was nicked in the midline bilaterally. The fascial incision was extended laterally and slightly superiorly, sharply. Kochers were placed on the inferior margin of the fascial incision and the fascia was bluntly and sharply dissected off of the rectus. The Kochers were replaced superiorly and the same was performed. The peritoneum was bluntly entered. The peritoneum and rectus were stretched and room was adequate. A bladder retractor was placed. A scalpel was used to make a transverse incision in the lower uterine segment. The uterus was breeched with a finger. The uterine incision was opened bluntly by applying caudal and cranial traction. The membranes were ruptured with clear fluid present. The surgeon's hand was placed in the uterine cavity and the head was elevated and then delivered with the assistance of fundal pressure. The umbilical cord was clamped x2 and cut and the baby was handed to the four h agent in waiting. The placenta was delivered with external uterine massage. Curettage with a dry laparotomy did not yield any retained membranes. The uterine incision was closed with a running layer of 0 Vicryl. A second imbricating suture was performed. Palpation of the ovaries and fallopian tubes was normal. The uterine incision, rectus, and fascia were inspected with good hemostasis seen. The peritoneum was marked with hemostats and closed with interrupted figure of 8s of 2-0 vicryl. The rectus was plicated with interrupted figure of 8s of 2- 0 Vicryl. The fascia was closed with a running layer of 0 Vicryl from end-to-end. The subcutaneous tissues were copiously irrigated and then closed with a running suture of 2-0 Vicryl. The skin was closed with 4-0 Monocryl in a subcuticular fashion. Dermabond was then applied. Fundal massage yielded a normal amount of blood and clot. She was transported to the recovery room without difficulty.
[2020-10-03] MEDS: LACTATED RINGERS 1,000 ML IV SCH (03:41)
[2020-10-03] MEDS: hydrOXYzine PAMOATE 25 MG CAPSULE PO PRN ×2 (03:41→20:33)
[2020-10-03] MEDS: KETOROLAC 30 MG/ML VIAL IVP SCH ×3 (04:21→16:35)
[2020-10-03] MEDS: ACETAMINOPHEN 500 MG TABLET PO SCH ×4 (04:21→20:32)
[2020-10-03] MEDS: DOCUSATE SODIUM 100 MG CAPSULE PO SCH ×2 (10:21→20:33)
[2020-10-03] MEDS: SODIUM CHLORIDE FLUSH 0.9% 10 ML SYRINGE IVP PRN ×3 (10:22→20:33)
[2020-10-03] MEDS: SODIUM CHLORIDE FLUSH 0.9% 10 ML SYRINGE IVP SCH ×3 (10:22→17:44)
--- NOTE | 2020-10-03 13:22 | PROVIDER PROGRESS NOTE ---
Subjective - Subjective Subjective: Feeling great, no probs, pain under great control. No nausea, vomiting, heavy bleeding, breast probs, or mood problems. Not OOB yet. Objective - Vital Signs/Intake & Output Reviewed Vital Signs: Yes Vital Signs: Vital Signs x48h Temp Pulse Resp BP Pulse Ox 10/03/20 08:35 99.0 F 104 H 18 116/68 99 Intake & Output: Intake & Output 09/30/20 10/01/20 10/02/20 10/03/20 23:59 23:59 23:59 23:59 Intake Total 450 Output Total 50 1250 Balance -50 -800 - Lab Results Fish Bones: 10/02/20 20:00 Other Labs: Lab Results x24hrs 10/02/20 10/02/20 Range/Units 20:23 20:00 WBC 12.8 H (4.8-10.8) x10^3/uL RBC 4.25 (4.20-5.40) 10^6/uL Hgb 12.2 (12.0-16.0) g/dL Hct 38.1 (37.0-47.0) % MCV 89.6 (81.0-99.0) fL MCH 28.7 (27.0-31.0) pg MCHC 32.0 (32.0-36.0) g/dL RDW 15.5 H (12.0-15.0) % Plt Count 327 (130-450) 10^3/uL MPV 11.1 H (7.9-10.8) fL Neut # (Auto) 9.0 H (1.5-6.6) 10^3/uL Lymph # (Auto) 2.3 (1.5-3.5) 10^3/uL Henry # (Auto) 1.1 H (0.0-1.0) 10^3/uL Eos # (Auto) 0.2 (0.0-0.7) 10^3/uL Baso # (Auto) 0.0 (0.0-0.1) 10^3/uL Absolute Nucleated RBC 0.02 x10^3/uL Nucleated RBC % 0.2 /100WBC Blood Type O POSITIVE Antibody Screen NEGATIVE - Other Results/Comments Other Results/Comments: Alert, smiling, NAD Abd soft, nt/nd Fundus firm, NT, 3cm below U Incision c/d/i without erythema No LE edema A/P: 25yo P2 POD # 1 s/p repeat for labor at 36w4d, doing very well. Baby had to be transported due to persistent TTN but is now off oxygen and doing well. Pt is pumping q2h. OK for early discharge, discussed that it is early, seek medical care immediately PRN issues, will be more sore than usual due to activity on PPD2. She is very eager to be discharged. Elevated HR, dark urine, hasn't had much to drink. Hydrate. If doesn't tolerate OOB well then will give IVF bolus.
--- NOTE | 2020-10-03 13:25 | Discharge Plan ---
Discharge Plan Problem Reviewed?: Yes Disposition: Home, Self Care Condition: Good Prescriptions: Acetaminophen [Acetaminophen Extra Strength] 1,000 mg PO Q6H PRN #45 tablet PRN Reason: Pain Docusate Sodium 100Mg Capsule [Colace 100Mg Capsule] 100 mg PO BID PRN #30 cap PRN Reason: to soften stool Ibuprofen [Motrin] 600 mg PO Q6H PRN #30 tab PRN Reason: Pain oxyCODONE [Roxicodone] 2.5 - 5 mg PO Q4H PRN #20 tablet PRN Reason: Severe Pain Diet: Regular Shower Restrictions: No Driving Restrictions: Yes (not while on narcotics) Additional Instructions or Follow Up instructions: Nothing in the vagina for 6 weeks: No intercourse, tampons, douching Call for: -Fever greater than 100.5 -Pain that does not improve with pain medication -Heavy bleeding in which you are soaking a pad an hour for 2 hours in a row -Incision becomes hot, hard, red, starts to open, or leaks foul smelling fluid No lifting more than 10# for 4 weeks [address] while on narcotics Ok to shower. Let water run over the incision and pat some soap onto the area. Do not scrub or apply lotion. Pat dry with a clean towel or use a unhairing machine operator. OK to use an unscented sanitary napkin or clean washcloth to keep the incision dry if the belly folds over the incision. No Smoking: If you smoke, Please STOP! Call for help. Follow-up with: Bryan Salomon MD [Provider Admit Priv/Credential] - 1 Week
[2020-10-03] MEDS ORDERED: KETOROLAC 30 MG/ML VIAL IVP SCH (23:00)
[2020-10-03] MEDS ORDERED: IBUPROFEN 600 MG TABLET PO SCH (23:00)
[2020-10-04] MEDS: ACETAMINOPHEN 500 MG TABLET PO SCH (04:40)
[2020-10-04 08:12] VITALS: BP 119/75
[2020-10-04] MEDS: DOCUSATE SODIUM 100 MG CAPSULE PO SCH (08:12)
--- NOTE | 2020-10-04 09:11 | DISCHARGE SUMMARY ---
Physician: Reba May MD DATE OF ADMISSION: 10/02/2020 DATE OF DISCHARGE: 10/04/2020 ADMISSION DIAGNOSES: 1. Prior section. 2. Intrauterine at 36 weeks and 4 days. 3. labor. 4. Bicornuate uterus. DISCHARGE DIAGNOSES: 1. Status post repeat section. 2. delivery. 3. Bicornuate uterus. PROCEDURE: On 10/02/2020, repeat low-transverse section. Findings were a live born male wi th Apgars of 8 and 9. EBL was 500 mL. A mild bicornuate uterus was identified. HOSPITAL COURSE: The patient was admitted out of triage for a repeat section due to spontan eous labor. This was uncomplicated. Unfortunately, her baby does need transport due to pers istent TTN. He was off oxygen by day of life 1 and doing well. Otherwise, her postoperative course was remarkable for her wanting to go and see her child, and so she was discharged about 36 hours foll owing her surgery. She was aware that this was early, but strongly desired discharge. She was eatin g, ambulating, urinating, and pumping without difficulties. She was passing flatus. No problems wit h pain or mood. No problems with heavy bleeding. PHYSICAL EXAM: VITAL SIGNS: She was afebrile with normal vital signs. GENERAL: Alert and pleasant, in no apparent distress. ABDOMEN: Soft, nontender, nondistended. Fundus firm, nontender, and 3 cm below the umbilicus. Inci charline clean, dry, and intact without erythema. EXTREMITIES: Lower extremities with trace edema bilaterally. DISCHARGE MEDICATIONS: 1. Oxycodone p.r.n. pain, #20, no refills. 2. Ibuprofen, Tylenol, and Colace. DISCHARGE DISPOSITION: Home. CONDITION: Good. FOLLOWUP: Follow up in 1 week at [facility]. TD: 10/04/2020 08:25
== END 2020-10-04 08:53 | disposition home or self-care (01) | DRG 788 ==
LOC: WFO 18:50 → FBP 18:52 → WFO 19:33 → FBP 19:45
PROVIDERS: ADMIT Obstetrics & Gynecology; ATTEND Obstetrics & Gynecology
PROC: 10D00Z1 Extraction of Products of Conception, Low, Open Approach (ICD-10-PCS; principal; 2020-10-02 20:30)
DX: O60.14X0 Preterm labor third trimester with preterm delivery third trimester, not applicable or unspecified (principal); O34.211 Maternal care for low transverse scar from previous cesarean delivery; N85.8 Other specified noninflammatory disorders of uterus; Z3A.36 36 weeks gestation of pregnancy; Z37.0 Single live birth; O34.03 Maternal care for unspecified congenital malformation of uterus, third trimester; Q51.3 Bicornate uterus; O99.214 Obesity complicating childbirth; E66.9 Obesity, unspecified; O99.513 Diseases of the respiratory system complicating pregnancy, third trimester; J45.909 Unspecified asthma, uncomplicated
CPT/HCPCS: 36415; 85025; 86850; 86900; 86901; 99212; A9270; J2274; J7120

== ENCOUNTER 2020-10-06 10:15 | Outpatient (CLI) | payer OTHER | END 2020-10-06 11:20 | disposition home or self-care (01) | LOC: WFO 10:15 → FBP 10:17 → WFO 11:20 | PROVIDERS: ATTEND Obstetrics & Gynecology | DX: Z39.1 Encounter for care and examination of lactating mother (principal) | CPT/HCPCS: 99404 ==